=== PATIENT | male | born 1935 | race Caucasian/White ===

== ENCOUNTER 2021-10-16 19:59 | Observation (INO) | payer OTHER ==
[~2021-10-16] VITALS: Ht 180.3 cm; Wt 106.6 kg
[~2021-10-16 19:59] MED LIST: ASPI-1822 PO; ATOR20TA PO
[2021-10-16 20:03] VITALS: BP 184/81
[2021-10-16 22:18] LABS: BASOPHILS # (AUTO) 0.1 K/uL (0.00-0.22); BASOPHILS % (AUTO) 0.5 % (0.0-2.0); EOSINOPHILS # (AUTO) 0.3 K/uL (0-0.4); EOSINOPHILS % (AUTO) 2.1 % (0.0-4.0); HEMATOCRIT 39.5 % (36-52); HEMOGLOBIN 13.2 g/dL (12.0-18.0); LYMPHOCYTES # (AUTO) 3.3 K/uL (2.0-11.5); LYMPHOCYTES % (AUTO) 26.5 % (20.5-51.1); MEAN CORPUSCULAR HEMOGLOBIN 30 pg (27-31); MEAN CORPUSCULAR HGB CONC 33 g/dL (33-37); MEAN CORPUSCULAR VOLUME 90.1 fL (80-94); MONOCYTES # (AUTO) 0.9 K/uL (0.8-1.0); MONOCYTES % (AUTO) 7.3 % (1.7-9.3); NEUTROPHILS # (AUTO) 7.9 K/uL (1.8-7.7); NEUTROPHILS % (AUTO) 63.6 % (42.2-75.2); PLATELET COUNT (AUTO) 253 K/uL (140-450); RED BLOOD CELL COUNT(AUTO) 4.38 MIL/uL (4.20-6.10); RED CELL DISTRIBUTION WIDTH 14.1 % (11.6-13.7); WHITE BLOOD COUNT (AUTO) 12.5 K/uL (4.8-10.8)
[2021-10-16 22:35] LABS: ALBUMIN 3.4 g/dL (3.4-5.0); ANION GAP 10.3 (8-16); ASPARTATE AMINOTRANSFERASE 13 U/L (15-37); CARBON DIOXIDE 29.3 mmol/L (21-32); CHLORIDE 108 mmol/L (98-107); CREATININE 1.1 mg/dL (0.6-1.3); GLUCOSE 135 mg/dL (74-106); POTASSIUM 4.6 mmol/L (3.5-5.1); SODIUM SERUM 143 mmol/L (136-145); TOTAL BILIRUBIN 0.2 mg/dL (0.0-1.0); UREA NITROGEN, BLOOD 22 mg/dL (7-18)
[2021-10-16] MEDS ORDERED: ASPIRIN 325 MG TAB PO ONE (23:10)
[2021-10-16] MEDS ORDERED: NITROGLYCERIN 0.4 MG TAB SL ONE (23:10)
[2021-10-17] MEDS ORDERED: ACETAMINOPHEN 325 MG TAB PO PRN (03:45)
[2021-10-17] MEDS ORDERED: ONDANSETRON 4 MG/2 ML VIAL IVP PRN (03:45)
[2021-10-17] MEDS ORDERED: MORPHINE SULFATE 2 MG/ML SYR IVP PRN (03:45)
[2021-10-17] MEDS: NACL 0.9% 1,000 ML IV SCH ×2 (03:45→17:41)
[2021-10-17] MEDS ORDERED: ASPIRIN 325 MG TAB ONE (04:01)
[2021-10-17] MEDS ORDERED: NITROGLYCERIN 0.4 MG TAB SL ONE (04:02)
--- NOTE | 2021-10-17 04:16 | NUR ---
PT MOVED TO ER BED 11
--- NOTE | 2021-10-17 04:31 | NUR ---
ALERT AND ORIENTED X4. EQUAL RISE AND FALL OF CHEST. REPORTS CHEST PAIN SINCE YESTERDAY AT 1600. REPORTS LEFT SIDED WEAKNESS THAT HAS IMPROVED. RATES OVERALL CHEST PAIN AND ARM PAIN 10/10. FAMILY MEMBER AT BEDSIDE. BRADYCARDIA NOTED, HEART RATE BETWEEN 45-50 BPM. MD NOTIFIED. DENIES ANY PAST MEDICAL HX, OR HOME MEDICATIONS. REPORTS HAVING A PROCEDURE DONE TO REMOVE HEART BLOCKAGES.
--- NOTE | 2021-10-17 04:41 | NUR ---
observed pt HR to be low 40s to high 30s. per pt sts, baseline is high 50s to low 60s. Dr. Nieves made aware. verbal order for atropine 0.5
[2021-10-17] MEDS ORDERED: ATROPINE 1 MG/10 ML SYR IVP ONE (04:45)
--- NOTE | 2021-10-17 04:45 | NUR ---
LUIS M HOWARD ADMINISTERED ATROPINE PER MD ORDERS.
--- NOTE | 2021-10-17 05:25 | NUR ---
SON LEFT CONTACT INFORMATION FOSTER [phone].
--- NOTE | 2021-10-17 06:34 | NUR ---
HR 60 BPM.
--- NOTE | 2021-10-17 06:36 | NUR ---
RN TO ROOM TO COLLECT COVID SWAB SPECIMEN. COVID SWAB SENT TO LAB VIA FOUR SLIDE OPERATOR.
--- NOTE | 2021-10-17 07:19 | NUR ---
REPORT GIVEN TO LUIS M HARRISON TO ASSUME CARE OF PT.
--- NOTE | 2021-10-17 07:21 | NUR ---
REPORT RECEIVED FROM LUIS M DE LA FUENTE FOR TRANSFER OF CARE
--- NOTE | 2021-10-17 08:16 | NUR ---
PT CURRENTLY EATING BREAKFAST TRAY BEDSIDE
--- NOTE | 2021-10-17 08:41 | NUR ---
Patient appears to be resting comfortably in bed. Vital Signs within normal limits. Respirations even and unlabored.
--- NOTE | 2021-10-17 09:34 | NUR ---
Patient appears to be resting comfortably in bed AND SLEEPING. Vital Signs within normal limits. Respirations even and unlabored.
--- NOTE | 2021-10-17 12:43 | NUR ---
Patient appears to be resting comfortably in bed. Vital Signs within normal limits. Respirations even and unlabored.
--- NOTE | 2021-10-17 13:51 | NUR ---
PT URINAL EMPITIED AND PT RESPOSITONED BEDSIDE FOR COMFORT
--- NOTE | 2021-10-17 17:42 | NUR ---
Patient appears to be resting comfortably in bed. Vital Signs within normal limits. Respirations even and unlabored.
--- NOTE | 2021-10-17 19:20 | NUR ---
PT LYING IN BED, ALERT AND ORIENTED X4. ALL VS ARE STABLE AT THIS TIME. HR 60 BPM. EQUAL RISE AND FALL OF CHEST. NO ACUTE DISTRESS AT THIS TIME. PT REPOSITIONED FOR COMFORT. DENIES ANY FURTHER NEEDS AT THIS TIME. WILL CONTINUE TO MONITOR PT.
--- NOTE | 2021-10-17 19:24 | NUR ---
Pt report given to LUIS M DE LA FUENTE. Transfer of care at this time.
--- NOTE | 2021-10-17 19:49 | NUR ---
RECIEVED SHIFT REPORT FROM LUIS M HARRISON TO ASSUME CARE OF THE PT.
--- NOTE | 2021-10-17 21:25 | NUR ---
LYING IN BED WITH EYES CLOSED, APPEARS TO BE SLEEPING.
--- NOTE | 2021-10-17 23:42 | NUR ---
PT LYING IN BED WITH EYES CLOSED, APPEARS TO BE SLEEPING. NO ACUTE DISTRESS AT THIS TIME, ALL VS ARE STABLE. WILL CONTINUE TO MONITOR PT.
--- NOTE | 2021-10-18 02:00 | NUR ---
LYING IN BED WITH EYES CLOSED, EQUAL RISE AND FALL OF CHEST. ALL VS ARE STABLE AT THIS TIME. WILL CONTINUE TO MONITOR PT.
--- NOTE | 2021-10-18 04:02 | NUR ---
PT LYING IN BED WITH EYES CLOSED, APPEARS TO BE SLEEPING. NO ACUTE DISRESS AT THIS TIME.
--- NOTE | 2021-10-18 06:14 | NUR ---
PT LYING IN BED WITH EYES CLOSED, APPEARS TO BE ASLEEP. EQUAL RISE AND FALL OF CHEST. NO ACUTE DISTRESS AT THIS TIME. ALL VS ARE STABLE. WILL CONTINUE TO MONITOR PT.
--- NOTE | 2021-10-18 06:28 | NUR ---
CALLED [facility] W/ REQUEST TO CALL BACK DR LICONA
[2021-10-18] MEDS: NACL 0.9% 1,000 ML IV SCH (06:34)
--- NOTE | 2021-10-18 07:11 | NUR ---
REPORT GIVEN TO LUIS M HARRISON TO ASSUME CARE OF PT.
--- NOTE | 2021-10-18 07:12 | NUR ---
REPORT RECEIVED FROM LUIS M DE LA FUENTE FOR TRANSFER OF CARE
--- NOTE | 2021-10-18 07:37 | NUR ---
PT AMBULATED TO RESTROOM WITH STEADY GAIT
--- NOTE | 2021-10-18 07:52 | NUR ---
PT ADMITTED 10/17/21 AT 0345 BY MD SAM. PT TELE HOLD IN ED BED 11
--- NOTE | 2021-10-18 07:53 | NUR ---
LAB BEDSIDE COLLECTING BLOOD WORK
--- NOTE | 2021-10-18 08:28 | NUR ---
PT PROVIDED WITH BREAKFAST TRAY BEDSIDE
[2021-10-18] MEDS ORDERED: ATORVASTATIN 20 MG TAB PO SCH (09:00)
--- NOTE | 2021-10-18 09:31 | NUR ---
PT REFUSING LAB WORK AT THIS TIME AND REQUESTING TO GO HOME
--- NOTE | 2021-10-18 09:36 | NUR ---
PT REQUESTING TO AMA AT THIS TIME. ADMITTING PHYISICAN PAGED
--- NOTE | 2021-10-18 09:48 | NUR ---
SPOKE WITH DR. BRADFORD AND INFORMED PATIENT WOULD LIKE TO AMA.
--- NOTE | 2021-10-18 09:54 | NUR ---
PATIENT SIGNED AMA FORMS AND DAUGHTER CONTACTED TO THEATER USHER PATIENT.
[2021-10-18 10:24] VITALS: BP 165/62
--- NOTE | 2021-10-18 10:31 | NUR ---
Patient does not wish to proceed with medical care recommended by DR. BRADFORD. Patient given information related to possible complications, up to and including , which could occur as a result of leaving hospital at this time. Patient verbalizes understanding of risks involved leaving against medical advice. Patient has signed AMA form.
--- NOTE | 2021-10-21 11:43 | NUR ---
LATE ENTRY- NORMAL SALINE IV FLUIDS DISCONTINUED AT 1031.
== END 2021-10-18 10:31 | disposition left against medical advice (07) ==
LOC: MED 19:59 → MTU 10-17 03:45
PROVIDERS: ADMIT Hospitalist; ATTEND Hospitalist
DX: R07.89 Other chest pain (principal); Z20.822 Contact with and (suspected) exposure to COVID-19; R00.1 Bradycardia, unspecified; I10 Essential (primary) hypertension; I25.10 Atherosclerotic heart disease of native coronary artery without angina pectoris; I25.2 Old myocardial infarction; Z79.899 Other long term (current) drug therapy
CPT/HCPCS: 36415; 71045; 80053; 84484; 85025; 87426; 93005; 96361; 96374; 99285; G0378; J0461

== ENCOUNTER 2022-06-29 04:40 | Emergency (ER) | payer OTHER ==
[~2022-06-29] VITALS: Ht 175.3 cm; Wt 104.3 kg
[2022-06-29 04:46] VITALS: BP 170/67
--- NOTE | 2022-06-29 04:55 | NUR ---
TO LOBBY FOLLOWING TRIAGE
--- NOTE | 2022-06-29 05:43 | NUR ---
TO BED 9 FROM LOBBY VIA W/C
--- NOTE | 2022-06-29 06:00 | NUR ---
87 YO M BIB SELF WITH C/C OF [facility] FOR 2DAYS. DENIES BLOOD IN STOOL. DENIES N/V. REPORTS 7/10 ON AND OFF PAIN. REPORTS FEELING FATIGUED. PT STATES HE JUST RETURNED FROM [place] ON WEDNESDAY. DENIES HX, RX AND ALLERGIES
--- NOTE | 2022-06-29 06:05 | NUR ---
NORAH MACHADO AT BEDSIDE ASSESSING PT.
[2022-06-29] MEDS ORDERED: NACL 0.9% 1,000 ML IV SCH (06:10)
--- NOTE | 2022-06-29 06:24 | NUR ---
LABS COLLECTED AND GIVEN TO [employer].
--- NOTE | 2022-06-29 06:26 | NUR ---
IV TO LEFT HAND 20G ESTAB. IV FLUIDS RUNNING.
--- NOTE | 2022-06-29 07:14 | NUR ---
PT TAKEN TO CT VIA [facility].
[2022-06-29 07:21] LABS: BASOPHILS % (AUTO) 0.1 % (0.0-2.0); HEMATOCRIT 39.4 % (36-52); HEMOGLOBIN 13.3 g/dL (12.0-18.0); LYMPHOCYTES # (AUTO) 0.5 K/uL (2.0-11.5); LYMPHOCYTES % (AUTO) 4.2 % (20.5-51.1); MEAN CORPUSCULAR HEMOGLOBIN 31 pg (27-31); MEAN CORPUSCULAR HGB CONC 34 g/dL (33-37); MEAN CORPUSCULAR VOLUME 90.6 fL (80-94); MONOCYTES # (AUTO) 0.7 K/uL (0.8-1.0); MONOCYTES % (AUTO) 5.6 % (1.7-9.3); NEUTROPHILS # (AUTO) 11.4 K/uL (1.8-7.7); NEUTROPHILS % (AUTO) 90.1 % (42.2-75.2); PLATELET COUNT (AUTO) 181 K/uL (140-450); RED BLOOD CELL COUNT(AUTO) 4.35 MIL/uL (4.20-6.10); RED CELL DISTRIBUTION WIDTH 13.3 % (11.6-13.7); WHITE BLOOD COUNT (AUTO) 12.6 K/uL (4.8-10.8)
--- NOTE | 2022-06-29 07:41 | NUR ---
RECEIVED REPORT FROM ANJALI ASENCIO, ASSUMED CARE AT THIS TIME. PATIENT IN BED WITH EYES CLOSED ON BEDSIDE MIXER OPERATOR HOT METAL, WILL CONTINUE TO MONITOR.
[2022-06-29 07:42] LABS: ALBUMIN 3.2 g/dL (3.4-5.0); ANION GAP 14.2 (8-16); ASPARTATE AMINOTRANSFERASE 18 U/L (15-37); CARBON DIOXIDE 21.5 mmol/L (21-32); CHLORIDE 104 mmol/L (98-107); GLUCOSE 146 mg/dL (74-106); POTASSIUM 3.7 mmol/L (3.5-5.1); SODIUM SERUM 136 mmol/L (136-145); TOTAL BILIRUBIN 0.5 mg/dL (0.0-1.0); UREA NITROGEN, BLOOD 19 mg/dL (7-18)
[2022-06-29 08:43] LABS: APPEARANCE,URINE CLEAR (CLEAR); BILIRUBIN,URINE NEGATIVE (NEGATIVE); BLOOD, URINE 1+ (NEGATIVE); COLOR,URINE YELLOW (YELLOW); LEUKOCYTE ESTERASE ,URINE NEGATIVE (NEGATIVE); NITRITE, URINE NEGATIVE (NEGATIVE); UGLUCOSE NEGATIVE (NEGATIVE)
--- NOTE | 2022-06-29 09:00 | NUR ---
PT APPEARS TO BE RESTING IN BED WITH EYES CLOSED, ON BEDSIDE COMBAT SYSTEMS OPERATOR. WILL CONTINUE TO MONITOR.
[2022-06-29 09:03] LABS: WBC,URINE 0-5 /HPF (0-5)
[2022-06-29 09:04] LABS: URIC ACID CRYSTALS,URINE 0-10 /HPF (None Seen)
[2022-06-29 09:05] LABS: OTHER CASTS, URINE None Seen /LPF (None Seen)
[2022-06-29] MEDS ORDERED: LOPE1TAB14 PO (11:02)
--- NOTE | 2022-06-29 11:12 | NUR ---
S/W PATIENTS DAUGHTER JHONY, STATED SHE WILL BE HERE IN 10 MIN TO PICK PATIENT UP.
--- NOTE | 2022-06-29 11:22 | NUR ---
IV removed, catheter intact and site benign. Applied folded 4x4 gauze and tape to stop bleeding.
[2022-06-29 11:23] VITALS: BP 142/56
--- NOTE | 2022-06-29 11:23 | NUR ---
Patient discharged with v/s stable. Written and verbal after care instructions ABOUT DEHYDRATION given and explained. Patient alert, oriented and verbalized understanding of instructions. Wheel Chair Assisted with to LOBBY TO AWAIT DAUGHTER FOR PICKUP. All questions addressed prior to discharge. ID band removed. Patient advised to follow up with PMD. Rx of IMODIUM given. Patient educated on indication of medication including possible reaction and side effects. Opportunity to ask questions provided and answered.
[2022-06-29 12:28] LABS: LIPASE 96 U/L (73-393)
== END 2022-06-29 11:23 | disposition home or self-care (01) ==
LOC: MED 04:40
DX: E86.0 Dehydration (principal); R19.7 Diarrhea, unspecified; I25.10 Atherosclerotic heart disease of native coronary artery without angina pectoris; Z72.89 Other problems related to lifestyle
CPT/HCPCS: 36415; 80053; 81001; 83690; 85025; 96360; 99285; J7030